=== PATIENT | female | born 1995 | race African-American/Black ===

== ENCOUNTER 2025-04-24 12:05 | Emergency (ER) | payer MEDICAID ==
[~2025-04-24] VITALS: Ht 160 cm; Wt 64.0 kg
[2025-04-24 12:08] VITALS: O2SAT 100
[2025-04-24 12:21] VITALS: BP 107/65; PULSE 80; RESP 16; TEMP 36.8; O2SAT 92
[2025-04-24 12:56] LABS: CLARITY URINE CLEAR (CLEAR); COLOR URINE YELLOW (YELLOW); GLUCOSE URINE NEGATIVE (NEGATIVE); KETONES URINE NEGATIVE (NEGATIVE); LEUKOCYTE ESTERASE URINE NEGATIVE (NEGATIVE); NITRITE URINE NEGATIVE (NEGATIVE); OCCULT BLOOD URINE NEGATIVE (NEGATIVE); PH URINE 7.0 (4.5-8.0); PROTEIN URINE TRACE (NEGATIVE); SPECIFIC GRAVITY URINE 1.027 (1.005-1.030); UROBILINOGEN URINE 1.0 E.U./dL (0.2-1.0)
[2025-04-24 13:04] LABS: BASOPHILS % 0.6 % (0.0-2.0); EOSINOPHILS % 1.0 % (0.0-5.0); HEMATOCRIT. 38.0 % (36.0-48.0); HEMOGLOBIN. 12.3 g/dL (12.0-16.0); LYMPHOCYTES % 44.0 % (20.0-50.0); MEAN PLATELET VOLUME 6.8 fl (7.4-10.4); MONOCYTES % 7.4 % (2.0-8.0); NEUTROPHILS % 47.0 % (40.0-76.0); PLATELET 305 x1000/uL (130-400); RED BLOOD CELL COUNT 4.19 mill/uL (4.2-5.4); RED CELL DISTRIBUTION WIDTH 16.2 % (11.6-14.6)
[2025-04-24 13:12] LABS: BACTERIA URINE 1+
[2025-04-24 13:13] LABS: WBC URINE 0-2 /hpf (0-2)
[2025-04-24 13:14] LABS: RBC URINE 0-2 /hpf (0-2); SQUAMOUS EPITHELIAL CELL URINE 2+ /lpf (RARE/1+)
[2025-04-24 13:16] LABS: HYALINE CASTS URINE 0-5 /lpf
[2025-04-24 13:19] LABS: CREATININE 0.7 mg/dL (0.6-1.0); UREA NITROGEN BLOOD 7 mg/dL (9-23)
[2025-04-24 13:21] LABS: ASPARTATE AMINOTRANSFERASE 14 IU/L (<34); BILIRUBIN DIRECT 0.3 mg/dL (<=3.0); BILIRUBIN TOTAL 1.0 mg/dL (0.1-1.0); PROTEIN TOTAL 7.2 g/dL (6.0-8.3)
[2025-04-24 13:23] LABS: B-HCG QUANTITATIVE < 1 mIU/mL (<6)
[2025-04-24] MEDS: ACETAMINOPHEN 325MG TABLET PO ONE (13:45)
[2025-04-24] MEDS: KETOROLAC 15MG/ML VIAL IM ONE (13:45)
[2025-04-24] MEDS ORDERED: NAPR275T96 MT (15:16)
[2025-04-24] MEDS ORDERED: ACET-2708 MT (15:16)
== END 2025-04-24 15:56 | disposition left against medical advice (07) ==
LOC: ER 12:05
DX: N83.8 Other noninflammatory disorders of ovary, fallopian tube and broad ligament (principal); N89.8 Other specified noninflammatory disorders of vagina; Z79.899 Other long term (current) drug therapy
CPT/HCPCS: 99285; 76830; 76856; 80076; 80048; 81003; 81025; 84702; 85025; 36415; 96372; J1885